=== PATIENT | male | born 1940 | race Two or more races ===

== ENCOUNTER 2019-11-20 05:48 | Day surgery (SDC) | payer OTHER | END 2019-11-20 10:30 | disposition home or self-care (01) | LOC: AMB-ENDOS 05:48 → ADM 13:30 | PROVIDERS: ATTEND Colon & Rectal Surgery | DX: D12.2 Benign neoplasm of ascending colon (principal); Z20.828 Contact with and (suspected) exposure to other viral communicable diseases; K64.1 Second degree hemorrhoids ==

== ENCOUNTER 2019-12-07 11:14 | Inpatient (IN) | payer OTHER ==
[~2019-12-07] VITALS: Ht 165.1 cm; Wt 69.9 kg
[2020-01-26] MEDS ORDERED: FOSINOPRIL SODI40 MG PO (12:32)
[2020-01-26] MEDS ORDERED: HYDROCHLOROTH12.5 MG PO (12:33)
[2020-01-26] MEDS ORDERED: ATORVASTATIN CA10 MG PO (12:33)
[2020-02-04] MEDS ORDERED: HYOSCYAMINE0.125 M1 SL (09:21)
[2020-02-04] MEDS ORDERED: OXYC1TAB9 PO (09:21)
== END 2020-02-04 12:43 | disposition home or self-care (01) | DRG 331 ==
LOC: SURH 02-02 05:36 → O/R 02-02 05:36 → SURH 02-02 10:21
PROVIDERS: ADMIT Colon & Rectal Surgery; ATTEND Colon & Rectal Surgery
PROC: 07TB4ZZ Resection of Mesenteric Lymphatic, Percutaneous Endoscopic Approach (ICD-10-PCS; 2020-02-02)
PROC: 0DTU4ZZ Resection of Omentum, Percutaneous Endoscopic Approach (ICD-10-PCS; 2020-02-02)
PROC: 0DTF4ZZ Resection of Right Large Intestine, Percutaneous Endoscopic Approach (ICD-10-PCS; principal; 2020-02-02 16:45)
DX: D12.2 Benign neoplasm of ascending colon (principal); Z20.828 Contact with and (suspected) exposure to other viral communicable diseases; K62.82 Dysplasia of anus; D50.0 Iron deficiency anemia secondary to blood loss (chronic); D12.3 Benign neoplasm of transverse colon; I12.9 Hypertensive chronic kidney disease with stage 1 through stage 4 chronic kidney disease, or unspecified chronic kidney disease; N18.2 Chronic kidney disease, stage 2 (mild)